=== PATIENT | female | born 1985 | race Caucasian/White ===

== ENCOUNTER 2016-10-13 14:35 | Emergency (ER) | payer MEDICAID ==
[2016-10-13] MEDS ORDERED: ACETAMINOPHEN 325 MG TABLET PO ONE (15:22)
--- NOTE | 2016-10-13 15:22 | ER Document Report ---
ED Medical Screen (RME) - General Stated Complaint: FALL/HAND PAIN Notes: fell yesterday am and hit her right hand on a dresser +pain, swelling h/o PE s/p knee surgery TRAVEL OUTSIDE OF THE [place] IN LAST 30 DAYS: No - Related Data Allergies/Adverse Reactions: dichloralphenazone [From MIDRIN] Allergy (Mild, Verified 10/13/16 15:21) Hives isometheptene mucate [From MIDRIN] Allergy (Mild, Verified 10/13/16 15:21) Hives meperidine HCl [From Demerol] Allergy (Mild, Verified 10/13/16 15:21) Hives morphine [Morphine] Allergy (Mild, Verified 10/13/16 15:21) Hives codeine [Codeine] Adverse Reaction (Verified 10/13/16 15:21) VOMITING Past Medical History - Past Medical History Cardiac Medical History: 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 Pulmonary Medical History: Reports: Hx Bronchitis, Hx Pneumonia Neurological Medical History: Reports: Hx Migraine Renal/ Medical History: Reports: Hx Kidney Stones GI Medical History: Reports: Hx Gastroesophageal Reflux Disease Musculoskeltal Medical History: Reports Hx Musculoskeletal Deformity, Reports Hx Musculoskeletal Trauma Past Surgical History: Reports: Hx Adenoidectomy, Hx Hysterectomy - Total, Hx Orthopedic Surgery - L knee, Hx Tonsillectomy, Hx Tubal Ligation - Immunizations Immunizations up to date: Yes Hx Diphtheria, Pertussis, Tetanus Vaccination: Yes
--- NOTE | 2016-10-13 16:24 | ER Document Report ---
Addendum entered and electronically signed by MELITON CRUZ FNP 16:25: Discharge - Discharge Clinical Impression: right fifth digit contusion Disposition: HOME, SELF-CARE Additional Instructions: Contusion Your injury has resulted in a contusion -- a crushing of the deep tissues. No injury to important structures was detected during the physician's exam. Contusions vary in the amount of pain they cause, and in the length of time required for healing. Typically, the area will become bruised, and will remain painful to touch for two or three weeks. However, most patients are back to working and playing within a few days. After the initial period of rest and cold-packs, your symptoms (together with the doctor's recommendations) will determine how rapidly you can get back to full activity. Usually this means "do what feels okay, but don't do things that hurt." If re-examination was recommended, it's important to follow up as instructed. Call the doctor or return any time if pain increases, if swelling becomes severe, if you develop numbness or weakness in an injured extremity, or if any other alarming symptoms occur. Follow-up with PMD in 2-3 days Prescriptions: Naproxen Sodium [Naproxen Sodium ER] 500 mg PO Q12 PRN #20 tablet.sa PRN Reason: Original Note: ED Hand/Wrist Injury - General Chief Complaint: Hand Injury Stated Complaint: FALL/HAND PAIN Mode of Arrival: Ambulatory Information source: Patient TRAVEL OUTSIDE OF THE [place] IN LAST 30 DAYS: No - HPI Injury to: Small finger Onset: Just prior to arrival - This 31-year-old female who felt herself falling put her right hand out in has a bruised area to the right fifth digit - Related Data Allergies/Adverse Reactions: dichloralphenazone [From MIDRIN] Allergy (Mild, Verified 10/13/16 15:21) Hives isometheptene mucate [From MIDRIN] Allergy (Mild, Verified 10/13/16 15:21) Hives meperidine HCl [From Demerol] Allergy (Mild, Verified 10/13/16 15:21) Hives morphine [Morphine] Allergy (Mild, Verified 10/13/16 15:21) Hives codeine [Codeine] Adverse Reaction (Verified 10/13/16 15:21) VOMITING Past Medical History - Social History Smoking Status: Unknown if Ever Smoked Chew tobacco use (# tins/day): No Frequency of alcohol use: None Drug Abuse: None Family History: Arthritis, CVA, DM, Hyperlipidemia, Hypertension, Malignancy, Thyroid Disfunction Patient has suicidal ideation: No Patient has homicidal ideation: No - Past Medical History Cardiac Medical History: 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 Pulmonary Medical History: Reports: Hx Bronchitis, Hx Pneumonia Neurological Medical History: Reports: Hx Migraine Renal/ Medical History: Reports: Hx Kidney Stones. Denies: Hx Peritoneal Dialysis GI Medical History: Reports: Hx Gastroesophageal Reflux Disease Musculoskeltal Medical History: Reports Hx Musculoskeletal Deformity, Reports Hx Musculoskeletal Trauma Past Surgical History: Reports: Hx Adenoidectomy, Hx Hysterectomy - Total, Hx Orthopedic Surgery - L knee, Hx Tonsillectomy, Hx Tubal Ligation - Immunizations Immunizations up to date: Yes Hx Diphtheria, Pertussis, Tetanus Vaccination: Yes Hx Pneumococcal Vaccination: 06/28/12 Review of Systems - Review of Systems Constitutional: No symptoms reported EENT: No symptoms reported Cardiovascular: No symptoms reported Respiratory: No symptoms reported Gastrointestinal: No symptoms reported Genitourinary: No symptoms reported Female Genitourinary: No symptoms reported Musculoskeletal: No symptoms reported Skin: No symptoms reported Hematologic/Lymphatic: No symptoms reported Neurological/Psychological: No symptoms reported Physical Exam - Vital signs Interpretation: Normal - General General appearance: Appears well, Alert - HEENT Head: Normocephalic, Atraumatic Eyes: Normal Pupils: PERRL - Respiratory Respiratory status: No respiratory distress Chest status: Nontender Breath sounds: Normal Chest palpation: Normal - Cardiovascular Rhythm: Regular Heart sounds: Normal auscultation Murmur: No - Abdominal Inspection: Normal Distension: No distension Bowel sounds: Normal Tenderness: Nontender Organomegaly: No organomegaly - Back Back: Normal, Nontender - Extremities General upper extremity: Normal inspection, Nontender, Normal color, Normal ROM , Normal temperature General lower extremity: Normal inspection, Nontender, Normal color, Normal ROM , Normal temperature, Normal weight bearing. No: Nii's sign Hand: Tender - Neurological Neuro grossly intact: Yes Cognition: Normal Orientation: AAOx4 [place] Coma Scale Eye Opening: Spontaneous [place] Coma Scale Verbal: Oriented [place]onda Coma Scale Motor: Obeys Commands [place] Coma Scale Total: 15 Speech: Normal Motor strength normal: LUE, RUE, LLE, RLE Sensory: Normal - Psychological Associated symptoms: Normal affect, Normal mood - Skin Skin Temperature: Warm Skin Moisture: Dry Skin Color: Normal Course - Diagnostic Test Radiology reviewed: Reports reviewed Discharge - Discharge Clinical Impression: right fifth digit contusion Disposition: HOME, SELF-CARE Additional Instructions: Contusion Your injury has resulted in a contusion -- a crushing of the deep tissues. No injury to important structures was detected during the physician's exam. Contusions vary in the amount of pain they cause, and in the length of time required for healing. Typically, the area will become bruised, and will remain painful to touch for two or three weeks. However, most patients are back to working and playing within a few days. After the initial period of rest and cold-packs, your symptoms (together with the doctor's recommendations) will determine how rapidly you can get back to full activity. Usually this means "do what feels okay, but don't do things that hurt." If re-examination was recommended, it's important to follow up as instructed. Call the doctor or return any time if pain increases, if swelling becomes severe, if you develop numbness or weakness in an injured extremity, or if any other alarming symptoms occur. Follow-up with PMD in 2-3 days Prescriptions: Naproxen Sodium [Naproxen Sodium ER] 500 mg PO Q12 PRN #20 tablet.sa PRN Reason:
[2016-10-13 16:53] VITALS: BP 138/77
== END 2016-10-13 16:52 | disposition home or self-care (01) ==
LOC: ER 14:35
DX: S60.051A Contusion of right little finger without damage to nail, initial encounter (principal); W19.XXXA Unspecified fall, initial encounter; Z88.5 Allergy status to narcotic agent; Z88.6 Allergy status to analgesic agent; Z86.711 Personal history of pulmonary embolism
CPT/HCPCS: 99283; 73130; J3490

== ENCOUNTER 2016-10-26 01:35 | Emergency (ER) | payer MEDICAID ==
[2016-10-26] MEDS ORDERED: OXYCODONE-ACETAMINOPHEN 5-325 MG TABLET PO ONE ×2 (02:20→03:38)
[2016-10-26] MEDS ORDERED: ONDANSETRON 4 MG TAB.RAPDIS SL ONE (02:20)
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
[2016-10-26] MEDS ORDERED: PROMETHAZINE HCL 25 MG TABLET PO ONE (03:37)
[2016-10-26] MEDS ORDERED: HYDROCODONE/ACETAMINOPHEN 5-325 MG 6 TAB/DSPK PO PRN (03:38)
[2016-10-26 04:41] VITALS: BP 110/52
== END 2016-10-26 04:40 | disposition home or self-care (01) ==
LOC: ER 01:35
DX: S09.90XA Unspecified injury of head, initial encounter (principal); S80.02XA Contusion of left knee, initial encounter; S39.012A Strain of muscle, fascia and tendon of lower back, initial encounter; V48.4XXA Person boarding or alighting a car injured in noncollision transport accident, initial encounter; Y04.2XXA Assault by strike against or bumped into by another person, initial encounter
CPT/HCPCS: 99284; 73130; 73562; 72110; 70450; S0119

== ENCOUNTER 2017-03-25 06:56 | Day surgery (SDC) | payer MEDICAID ==
[2017-03-23 09:57] LABS: HEMATOCRIT 41.7 % (36.0-47.0); HEMOGLOBIN 13.7 g/dL (12.0-15.5); HGB HCT DIFFERENCE -0.6; MEAN CORPUSCULAR HGB CONC 32.8 g/dL (32.0-36.0); MEAN CORPUSCULAR VOLUME 88 fl (80-97); RED BLOOD COUNT 4.73 10^6/uL (3.72-5.28); RED CELL DISTRIBUTION WIDTH 13.5 % (11.5-14.0); WHITE BLOOD COUNT 7.1 10^3/uL (4.0-10.5)
[2017-03-23 10:33] LABS: ANION GAP 12 (5-19); BLOOD UREA NITROGEN 16 mg/dL (7-20); CALCIUM 9.4 mg/dL (8.4-10.2); CARBON DIOXIDE 24 mmol/L (22-30); CHLORIDE 107 mmol/L (98-107); CREATININE RESULT 0.75 mg/dL (0.52-1.25); GLUCOSE 91 mg/dL (75-110); POTASSIUM 4.9 mmol/L (3.6-5.0); SODIUM 142.5 mmol/L (137-145)
[2017-03-25] MEDS ORDERED: DIPHENHYDRAMINE HCL 50 MG/ML VIAL ONE (07:07)
[2017-03-25] MEDS ORDERED: NALOXONE HCL INJ/PF 0.4 MG/1 ML SDV ONE (07:07)
[2017-03-25] MEDS ORDERED: ONDANSETRON HCL INJ/PF 4 MG/2 ML SDV ONE (07:07)
[2017-03-25] MEDS ORDERED: FLUMAZENIL INJ 0.5 MG/5 ML VIAL IV ONE (07:08)
[2017-03-25] MEDS ORDERED: FENTANYL CITRATE INJ/PF 100 MCG/2 ML AMPUL ONE (07:08)
[2017-03-25] MEDS ORDERED: EPINEPHRINE INJ 1 MG/10 ML DISP.SYRIN ONE (07:08)
[2017-03-25] MEDS ORDERED: MIDAZOLAM 2 MG/2 ML INJ ONE ×2 (07:08→09:22)
[2017-03-25] MEDS ORDERED: GLUCAGON,HUMAN RECOMB 1 MG INJ ONE (07:08)
[2017-03-25 08:35] LABS: PROTHROMBIN TIME 13.1 SEC (11.4-15.4)
[2017-03-25 08:36] LABS: PARTIAL THROMBOPLASTIN TIME 29.3 SEC (23.5-35.8)
[2017-03-25] MEDS ORDERED: PROPOFOL INJ 200 MG/20 ML VIAL IV ONE (09:22)
[2017-03-25] MEDS ORDERED: DIPHENHYDRAMINE HCL 50 MG/ML VIAL IV PRN (09:48)
[2017-03-25] MEDS ORDERED: PROMETHAZINE HCL INJ 25 MG/1 ML VIAL IV PRN ×2 (09:48)
--- NOTE | 2017-03-25 10:28 | Operative Report ---
Operative Report DATE OF SURGERY: 03/25/17 Operative Report: The risks, benefits and alternatives of the procedure including risks of bleeding, perforation requiring surgery are explained to the patient detail and informed consent is obtained. Patient was taken to the operating room. Timeout was called. Propofol medications administered. A rectal examination was done which did not reveal any masses, tears or fissures. An Olympus video scope was inserted into the patient's rectum. The scope was then gradually advanced all the way to the cecum. The cecum was identified by the usual anatomical landmarks including the ileocecal valve as well as the appendiceal office. Photodocumentation was obtained. Prep was good. The scope was then sequentially pulled back via the various segments of the colon including the ascending colon, hepatic flexure, transverse colon, splenic flexure, descending colon and finding to the rectosigmoid portions of the colon. Retroflexion maneuver is performed. The risks benefits and alternatives of the procedure explained to the patient in detail and informed consent is obtained. A GIF Olympus video scope was inserted into the patient's mouth and hypopharynx, the esophagus is identified intubated and insufflated ,the scope was then advanced through the esophagus stomach and duodenum, retroflexion maneuver is done ,the esophagus stomach and first and second portions of the duodenum examined PREOPERATIVE DIAGNOSIS: Iron deficiency anemia rule out GI bleed POSTOPERATIVE DIAGNOSIS: Moderate ileitis status post biopsy. Internal hemorrhoids. Colonoscopy performed to the cecum, no AVMs, diverticulosis, polyps are noted. Gastritis status post biopsy rule out Helicobacter pylori. Esophagus normal. First and second portions of the duodenum normal OPERATION: Colonoscopy with biopsy. EGD with biopsy SURGEON: ZACH CARDENAS ANESTHESIA: LMAC TISSUE REMOVED OR ALTERED: Gastric mucosal specimen obtained. Terminal ileum specimen obtained COMPLICATIONS: None. ESTIMATED BLOOD LOSS: None. INTRAOPERATIVE FINDINGS: As described above. PROCEDURE: Patient tolerated procedure well. No Postprocedure complications are noted. Patient discharged in good condition. Discharge date 03/25/2017. Discharge diet: Regular. Discharge activity: Regular. 2-3 week follow-up to discuss findings. Patient is instructed to call the office or proceed to the emergency room should there be any further problems or questions. We will wait on biopsies.
[2017-03-25 11:56] VITALS: BP 108/68
== END 2017-03-25 11:45 | disposition home or self-care (01) ==
LOC: END 06:56
PROVIDERS: ATTEND Internal Medicine Gastroenterology
PROC: 0DB68ZX Excision of Stomach, Via Natural or Artificial Opening Endoscopic, Diagnostic (ICD-10-PCS; principal; 2017-03-25 09:00)
PROC: 0DBB8ZX Excision of Ileum, Via Natural or Artificial Opening Endoscopic, Diagnostic (ICD-10-PCS; 2017-03-25 09:00)
DX: K29.50 Unspecified chronic gastritis without bleeding (principal); K52.9 Noninfective gastroenteritis and colitis, unspecified; B96.81 Helicobacter pylori [H. pylori] as the cause of diseases classified elsewhere; K92.1 Melena; K64.8 Other hemorrhoids; D50.9 Iron deficiency anemia, unspecified; G43.909 Migraine, unspecified, not intractable, without status migrainosus; E72.12 Methylenetetrahydrofolate reductase deficiency; M19.90 Unspecified osteoarthritis, unspecified site; Z80.0 Family history of malignant neoplasm of digestive organs; Z79.01 Long term (current) use of anticoagulants; Z79.899 Other long term (current) drug therapy; Z86.711 Personal history of pulmonary embolism; Z88.8 Allergy status to other drugs, medicaments and biological substances; Z88.5 Allergy status to narcotic agent
CPT/HCPCS: 43239; 45380; 36415 ×2; 85027; 85610; 85730; 80048; 88342 ×2; 88305 ×2; J2250; J2704; 45378; 740; J0171; J1200; J1610; J2310; J2405; J3010; J3490

== ENCOUNTER → 2017-03-27 | Outpatient (CLI) | payer MEDICAID ==
--- NOTE | 2017-03-27 15:32 | WOMENS IMAGING REPORT ---
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 TECHNIQUE: Dual-Energy X-ray Absorptiometry (DEXA) of the AP Spine and Hip. LIMITATIONS: None. FINDINGS: LUMBAR SPINE: The bone mineral density (BMD) measured from L1-L4 in the AP projection correlates with a T-score of -1.4, which is osteopenia as defined by the World Health Organization. HIP: The bone mineral density (BMD) measured in the left hip correlates with a T-score of 1.1, which is no rmal as defined by the World Health Organization. IMPRESSION: 1. LUMBAR SPINE: Osteopenia 2. HIP: Normal COMMENT: The World Health Organization defines low BMD as follows: T-score: Normal: Greater than -1.0 Osteopenia: Between -1.0 and -2.5 Osteoporosis: Less than -2.5 without fractures Established osteoporosis: Less than -2.5 with fractures In general, you may wish to consider: Diagnosis Treatment Follow-up DEXA Normal BMD Prevention 2-3 years Osteopenia Prevention/Therapy 1-2 years Osteoporosis Therapy Yearly TECHNICAL DOCUMENTATION: JOB ID: [id number]- All Rights Reserved
== END ==
LOC: WI 13:50
PROVIDERS: ATTEND Specialist
DX: M81.0 Age-related osteoporosis without current pathological fracture (principal)
CPT/HCPCS: 77080

== ENCOUNTER 2017-04-30 14:07 | Emergency (ER) | payer OTHER, MEDICAID ==
[2017-04-30 14:22] VITALS: BP 122/63
[2017-04-30] MEDS ORDERED: CYCLOBENZAPRINE HCL 10 MG TABLET PO ONE (14:55)
[2017-04-30] MEDS ORDERED: HYDROCODONE/ACETAMINOPHEN 5-325 MG 6 TAB/DSPK PO PRN (14:55)
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
== END 2017-04-30 15:13 | disposition home or self-care (01) ==
LOC: ER 14:07
DX: S20.212A Contusion of left front wall of thorax, initial encounter (principal); M25.512 Pain in left shoulder; M25.561 Pain in right knee; M54.5 Low back pain; R07.81 Pleurodynia; V89.2XXA Person injured in unspecified motor-vehicle accident, traffic, initial encounter
CPT/HCPCS: 99283

== ENCOUNTER → 2017-05-11 | Day surgery (SDC) | payer MEDICAID ==
--- NOTE | 2017-05-11 14:43 | RADIOLOGY REPORT (SQ) ---
EXAM DESCRIPTION: ARTHRO WRIST INJECTION; FLUORO/NEEDLE PLACEMENT COMPLETED DATE/TIME: 05/11/2017 2:02 pm REASON FOR STUDY: UNSPEC FX OF SECOND METACARPAL BONE, RT HAND (S62.300A) S62.300A UNSP FRACTURE OF SECOND METACARPAL BONE, RIGHT HAND COMPARISON: None. FLUOROSCOPY TIME: 23 seconds 1 images saved to PACS. LIMITATIONS: None. PROCEDURE: Procedure, risks, benefits and alternatives explained to patient who then gave written co nsent. The right wrist was marked and a time-out was called for correct marking verification. Radioc arpal site marked using fluoroscopic guidance. Wrist prepped and draped using sterile technique. Lo charito anesthesia achieved using 1% lidocaine injection. Hypodermic needle introduced into the joint sp melissa under direct fluoroscopic visualization. Non-ionic contrast instilled to confirm intra-articular position. Dilute gadolinium solution then injected. Needle removed and entry site covered with steri le bandage. No immediate complications noted. TECHNIQUE: Digital images acquired during fluoroscopy and stored on PACS. Patient immediately take n to the MR suite for additional imaging. INJECTION LOCATION: Right wrist. CONTRAST TYPE AND AMOUNT: 0.5 cc Isovue. 1.5 cc dilute gadolinium. IMPRESSION: SUCCESSFUL NEEDLE PLACEMENT AND INJECTION FOR RIGHT WRIST MR ARTHROGRAM. COMMENT: Quality ID #[id number]: Final reports for procedures using fluoroscopy that document radiation exp osure indices, or exposure time and number of fluorographic images (if radiation exposure indices are not available) TECHNICAL DOCUMENTATION: JOB ID: [id number] [employer]- All Rights Reserved
--- NOTE | 2017-05-11 15:05 | RADIOLOGY REPORT (SQ) ---
EXAM DESCRIPTION: MRI RT UPPER JOINT WITH COMPLETED DATE/TIME: 05/11/2017 2:34 pm REASON FOR STUDY: UNSPEC FX OF SECOND METACARPAL BONE, RT HAND (S62.300A) S62.300A UNSP FRACTURE OF SECOND METACARPAL BONE, RIGHT HAND COMPARISON: None. TECHNIQUE: Right wrist post-arthrogram imaging includes T1 and T1 and T2 fat sat sequences. LIMITATIONS: Motion artifact. FINDINGS: JOINT DISTENSION: Adequate. No loose body. BONE MARROW: No alteration of signal to suggest marrow replacement or edema. No occult fracture. No l arge osteophytes. CARPAL ALIGNMENT AND ARTICULATION: Normal congruity of sigmoid notch at level of distal ruj without p ositive or negative ulnar variance. Normal capitolunate angle. No widening of scapholunate articulati on. SCAPHOLUNATE LIGAMENT: Without tear. No contrast in middle carpal compartment. LUNATO-TRIQUETRAL LIGAMENT: Without tear. No contrast in middle carpal compartment. TFC COMPLEX: radial and ulnar attachments normal. Meniscus intact. Extensor carpi ulnaris tendon norm al without tendinopathy. No contrast in distal RUJ. EXTRINSIC LIGAMENTS AND DISTAL RADIO-ULNAR JOINT: Dorsal and volar distal RUJ ligaments intact withou t subluxation of the distal ulna with respect to the radius. 1-6 EXTENSOR COMPARTMENTS: Normal. Specifically no tendinopathy of the abductor pollicis longus or ex tensor pollicis brevis to suggest de Quervains syndrome. CARPAL TUNNEL AND MEDIAN NERVE: Normal volume and morphology of carpal tunnel proximal at the level o f the radiocarpal joint and distally at the hook of the hamate. No thickening or signal alteration of median nerve. OTHER: No other significant finding. IMPRESSION: NORMAL MRI ARTHROGRAM OF THE WRIST. TECHNICAL DOCUMENTATION: JOB ID: [id number] [employer]- All Rights Reserved
== END ==
LOC: RAD 12:50
PROVIDERS: ATTEND Family Medicine
DX: S62.300A Unspecified fracture of second metacarpal bone, right hand, initial encounter for closed fracture (principal); X58.XXXA Exposure to other specified factors, initial encounter
CPT/HCPCS: 73222; 25246; 77002; A9576

== ENCOUNTER 2017-06-12 20:30 | Emergency (ER) | payer MEDICAID ==
[2017-06-12] MEDS ORDERED: OXYCODONE-ACETAMINOPHEN 5-325 MG TABLET PO ONE (21:00)
--- NOTE | 2017-06-12 21:02 | ER Document Report ---
ED Medical Screen (RME) - General Chief Complaint: Fall Injury Stated Complaint: FALL Time Seen by Provider: 06/12/17 21:00 Mode of Arrival: Wheelchair Information source: Patient TRAVEL OUTSIDE OF THE [place] IN LAST 30 DAYS: No - HPI Patient complains to provider of: Slip and fall Onset: Just prior to arrival Onset/Duration: Sudden Notes: 06/12/17 21:01 Patient is a 32-year-old female presenting to the emergency room status post slip and fall causing injury to her left knee, her right low back and her right hand, has left hand in a cast from a previous injury - Related Data Allergies/Adverse Reactions: dichloralphenazone [From MIDRIN] Allergy (Mild, Verified 06/12/17 20:40) Hives isometheptene mucate [From MIDRIN] Allergy (Mild, Verified 06/12/17 20:40) Hives meperidine HCl [From Demerol] Allergy (Mild, Verified 06/12/17 20:40) Hives morphine [Morphine] Allergy (Mild, Verified 06/12/17 20:40) Hives codeine [Codeine] Adverse Reaction (Severe, Verified 06/12/17 20:40) VOMITING Past Medical History - Past Medical History Cardiac Medical History: 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 Denies: Hx Cerebrovascular Accident, Hx Seizures Renal/ Medical History: Reports: Hx Kidney Stones. Denies: Hx Peritoneal Dialysis GI Medical History: Reports: Hx Gastroesophageal Reflux Disease Musculoskeltal Medical History: Denies Hx Arthritis, Reports Hx Musculoskeletal Deformity, Reports Hx Musculoskeletal Trauma Past Surgical History: Reports: Hx Adenoidectomy, Hx Cholecystectomy, Hx Hysterectomy, Hx Orthopedic Surgery - L knee, Hx Tonsillectomy, Hx Tubal Ligation - Immunizations Immunizations up to date: Yes Hx Diphtheria, Pertussis, Tetanus Vaccination: Yes Physical Exam - Vital signs Vitals: Temp Pulse Resp BP Pulse Ox 98.2 F 94 20 119/63 97 06/12/17 20:40 06/12/17 20:40 06/12/17 20:40 06/12/17 20:40 06/12/17 20:40 Course - Vital Signs Vital signs: Temp Pulse Resp BP Pulse Ox 98.2 F 94 20 119/63 97 06/12/17 20:40 06/12/17 20:40 06/12/17 20:40 06/12/17 20:40 06/12/17 20:40
--- NOTE | 2017-06-12 22:39 | RADIOLOGY REPORT (SQ) ---
EXAM DESCRIPTION: L SPINE WHOLE COMPLETED DATE/TIME: 06/12/2017 10:31 pm REASON FOR STUDY: fall COMPARISON: None. NUMBER OF VIEWS: Five views including obliques. TECHNIQUE: AP, lateral, oblique, and sacral radiographic images acquired of the lumbar spine. LIMITATIONS: None. FINDINGS: MINERALIZATION: Normal. SEGMENTATION: Normal. No transitional anatomy. ALIGNMENT: Normal. VERTEBRAE: Maintained height. No fracture or worrisome bone lesion. DISCS: Preserved height. No significant osteophytes or end plate irregularity. POSTERIOR ELEMENTS: Pedicles and facets are intact. No pars defect or posterior arch defects. HARDWARE: None in the spine. PARASPINAL SOFT TISSUES: Normal. PELVIS: Intact as visualized. No fractures or worrisome bone lesions. SI joints intact. OTHER: No other significant finding. IMPRESSION: NORMAL 5 VIEW LUMBAR SPINE. TECHNICAL DOCUMENTATION: JOB ID: [id number] [employer]- All Rights Reserved
--- NOTE | 2017-06-12 22:39 | RADIOLOGY REPORT (SQ) ---
EXAM DESCRIPTION: KNEE LEFT 4 VIEW COMPLETED DATE/TIME: 06/12/2017 10:31 pm REASON FOR STUDY: fall COMPARISON: 10/26/2016. NUMBER OF VIEWS: Four views. TECHNIQUE: AP, lateral, and both oblique radiographic images acquired of the left knee. LIMITATIONS: None. FINDINGS: MINERALIZATION: Normal. BONES: No acute fracture or dislocation. No worrisome bone lesions. JOINT: No effusion. SOFT TISSUES: No soft tissue swelling. No radio-opaque foreign body. OTHER: No other significant finding. IMPRESSION: NEGATIVE STUDY OF THE LEFT KNEE. NO RADIOGRAPHIC EVIDENCE OF ACUTE INJURY. TECHNICAL DOCUMENTATION: JOB ID: [id number] [employer]- All Rights Reserved
--- NOTE | 2017-06-12 22:40 | RADIOLOGY REPORT (SQ) ---
EXAM DESCRIPTION: HAND RIGHT 3 VIEWS COMPLETED DATE/TIME: 06/12/2017 10:31 pm REASON FOR STUDY: fall COMPARISON: 10/13/2016. EXAM PARAMETERS: NUMBER OF VIEWS: Three views. TECHNIQUE: AP, lateral and oblique radiographic images acquired of the right hand. LIMITATIONS: None. FINDINGS: MINERALIZATION: Normal. BONES: No acute fracture or dislocation. No worrisome bone lesions. JOINTS: No effusions. SOFT TISSUES: No soft tissue swelling. No foreign body. OTHER: No other significant finding. IMPRESSION: NEGATIVE STUDY OF THE RIGHT HAND. NO RADIOGRAPHIC EVIDENCE OF ACUTE INJURY. TECHNICAL DOCUMENTATION: JOB ID: [id number] [employer]- All Rights Reserved
--- NOTE | 2017-06-12 23:11 | ER Document Report ---
ED General - General Chief Complaint: Fall Injury Stated Complaint: FALL Time Seen by Provider: 06/12/17 21:00 Mode of Arrival: Wheelchair Notes: Patient is a 32-year-old female who presents after mechanical slip and fall at her son's football game. States she slid in a area of mud landing on her right hand and striking her left knee. She does also complain of pain to her low back. This did occur several hours prior to arrival. Since that time she has had a constant, dull, aching pain to the affected areas. Moving worsens the pain. She has not tried anything for improvement of the pain. She did not hit her head or neck. She denies any weakness, numbness, bowel or bladder incontinence. She has been able to ambulate but with pain since the episode. No history of similar injuries to the affected area in the past with exception of the left knee which she states has been injured in the past. TRAVEL OUTSIDE OF THE [place] IN LAST 30 DAYS: No - Related Data Allergies/Adverse Reactions: dichloralphenazone [From MIDRIN] Allergy (Mild, Verified 06/12/17 20:40) Hives isometheptene mucate [From MIDRIN] Allergy (Mild, Verified 06/12/17 20:40) Hives meperidine HCl [From Demerol] Allergy (Mild, Verified 06/12/17 20:40) Hives morphine [Morphine] Allergy (Mild, Verified 06/12/17 20:40) Hives codeine [Codeine] Adverse Reaction (Severe, Verified 06/12/17 20:40) VOMITING Past Medical History - General Information source: Patient - Social History Smoking Status: Never Smoker Chew tobacco use (# tins/day): No Frequency of alcohol use: None Drug Abuse: None Lives with: Family Family History: Arthritis, CAD, COPD, CVA, DM, Hyperlipidemia, Hypertension, Malignancy, Thyroid Disfunction - Past Medical History Cardiac Medical History: 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 Denies: Hx Cerebrovascular Accident, Hx Seizures Renal/ Medical History: Reports: Hx Kidney Stones. Denies: Hx Peritoneal Dialysis GI Medical History: Reports: Hx Gastroesophageal Reflux Disease Musculoskeltal Medical History: Denies Hx Arthritis, Reports Hx Musculoskeletal Deformity, Reports Hx Musculoskeletal Trauma Past Surgical History: Reports: Hx Adenoidectomy, Hx Cholecystectomy, Hx Hysterectomy, Hx Orthopedic Surgery - L knee, Hx Tonsillectomy, Hx Tubal Ligation - Immunizations Immunizations up to date: Yes Hx Diphtheria, Pertussis, Tetanus Vaccination: Yes Hx Pneumococcal Vaccination: 06/28/12 Review of Systems - Review of Systems Notes: Constitutional: Negative for fever. Eyes: Negative for visual changes. ENT: Negative for facial injury Cardiovascular: Negative for chest injury. Respiratory: Negative for shortness of breath. Gastrointestinal: Negative for abdominal injury. Genitourinary: Negative for genital injury Musculoskeletal: Positive for back injury. Skin: Positive for laceration/abrasions. Neurological: Negative for head injury. Physical Exam - Vital signs Vitals: Temp Pulse Resp BP Pulse Ox 98.2 F 94 20 119/63 97 06/12/17 20:40 06/12/17 20:40 06/12/17 20:40 06/12/17 20:40 06/12/17 20:40 Interpretation: Normal Notes: PHYSICAL EXAMINATION: GENERAL: Well-appearing, no acute distress. HEAD: Atraumatic, normocephalic. EYES: Pupils equal round and reactive to light, extraocular movements intact, sclera anicteric, conjunctiva are normal. ENT: nares patent, no oral pharyngeal trauma. No hemotympanum, no Ott's sign , no raccoon eyes. NECK: No midline cervical spine tenderness. Patient able to move their head to 45 bilaterally without any discomfort. LUNGS: Breath sounds clear to auscultation bilaterally and equal. No wheezes rales or rhonchi. HEART: Regular rate and rhythm without murmurs. CHEST WALL: No ecchymosis over the chest wall. ABDOMEN: Soft, nontender, normoactive bowel sounds. No guarding, no rebound. No abdominal bruising EXTREMITIES: Mild swelling to the left knee. SHAISTA of the left lower extremity is 1.1. Patient is able to flex the knee to 90 with pain. Full extension. No anterior laxity. Mild bruising to the thenar eminence of the right hand. BACK: No midline spinal tenderness, step-offs, or deformities. Mild pain on palpation of the right low back, lateral to the midline. NEUROLOGICAL: Face symmetric. Tongue protrudes midline. Extraocular motions intact. Pupils are 2 mm and equally reactive. Moves all extremity spontaneously and on command PSYCH: Normal mood, normal affect. SKIN: Warm, Dry, normal turgor, no rashes or lesions noted. Course - Re-evaluation Re-evalutation: 06/12/17 23:09 Patient presents after a mechanical fall just prior to arrival. She did not hit her head or neck. Her main complaint at time of arrival is left knee pain. SHAISTA is greater than 0.9. She is able to flex her knee to 90 with pain. No anterior laxity. There is a soft tissue abrasion over the patella. X-ray does not show any evidence of acute fracture. She did also complain of right low back pain but has no midline spinal tenderness, step-offs or deformities. A 5 view lumbar film was obtained in triage and is noted to be normal. She does also complain of right hand pain and does have notable bruising over her thenar eminence. X-ray of the hand is normal. She does not have any additional areas of injury. She is in place in a knee immobilizer. Tetanus is already up-to- date. At this time will discharge with return precautions and follow-up recommendations. Verbal discharge instructions given a the bedside and opportunity for questions given. Medication warnings reviewed. Patient is in agreement with this plan and has verbalized understanding of return precautions and the need for primary care follow-up in the next 24-72 hours. - Vital Signs Vital signs: Temp Pulse Resp BP Pulse Ox 98.2 F 76 20 126/61 H 98 06/12/17 20:40 06/12/17 23:49 06/12/17 20:40 06/12/17 23:34 06/12/17 23:49 - Diagnostic Test Radiology reviewed: Image reviewed, Reports reviewed Radiology results interpreted by me: 06/13/17 03:44 Right hand x-ray: No acute fracture or dislocation Left knee x-ray: No acute fracture or dislocation Discharge - Discharge Clinical Impression: Fall Qualifiers: Encounter type: initial encounter Qualified Code(s): W19.XXXA - Unspecified fall, initial encounter Left knee injury Qualifiers: Encounter type: initial encounter Qualified Code(s): S89.92XA - Unspecified injury of left lower leg, initial encounter Injury of right hand Qualifiers: Encounter type: initial encounter Qualified Code(s): S69.91XA - Unspecified injury of right wrist, hand and finger(s), initial encounter Condition: Good Disposition: HOME, SELF-CARE Additional Instructions: Your x-ray does not show any acute fracture today. You likely have a ligamentous strain. Take Tylenol 1000 mg every 6 hours as needed for pain. Continue to apply ice to the area is much your able. Please follow-up with your primary care physician or orthopedic surgery if you do not have improving your symptoms in the next 1-2 weeks. Please return immediately if you develop weakness, numbness, spreading redness from the area, or any other symptoms that are concerning to you. Referrals: RONI PARR MD [ACTIVE STAFF] - Follow up as needed
[2017-06-12 23:35] VITALS: BP 126/61
[2017-06-13] MEDS ORDERED: HYDROCODONE/ACETAMINOPHEN 5-325 MG 6 TAB/DSPK PO PRN (00:02)
== END 2017-06-13 00:14 | disposition home or self-care (01) ==
LOC: ER 20:30
DX: S89.92XA Unspecified injury of left lower leg, initial encounter (principal); S69.91XA Unspecified injury of right wrist, hand and finger(s), initial encounter; M79.641 Pain in right hand; M25.562 Pain in left knee; W19.XXXA Unspecified fall, initial encounter
CPT/HCPCS: 99283; 73130; 73562; 72110; L1830

== ENCOUNTER 2017-07-08 08:08 | Day surgery (SDC) | payer MEDICAID ==
[~2017-07-08 08:08] MED LIST: CEFAZOLIN 2 GM/D5W RTU 2 GM/50 ML RTUPB IV PRN
[2017-07-08 08:36] LABS: HEMATOCRIT 41.1 % (36.0-47.0); HEMOGLOBIN 13.9 g/dL (12.0-15.5); HGB HCT DIFFERENCE 0.6; MEAN CORPUSCULAR HEMOGLOBIN 28.9 pg (27.0-33.4); MEAN CORPUSCULAR HGB CONC 33.7 g/dL (32.0-36.0); MEAN CORPUSCULAR VOLUME 86 fl (80-97); RED BLOOD COUNT 4.81 10^6/uL (3.72-5.28); RED CELL DISTRIBUTION WIDTH 13.8 % (11.5-14.0); WHITE BLOOD COUNT 7.8 10^3/uL (4.0-10.5)
[2017-07-08 08:42] LABS: PARTIAL THROMBOPLASTIN TIME 26.4 SEC (23.5-35.8); PROTHROMBIN TIME 12.5 SEC (11.4-15.4)
[2017-07-08 08:51] LABS: ANION GAP 12 (5-19); BLOOD UREA NITROGEN 8 mg/dL (7-20); CALCIUM 9.8 mg/dL (8.4-10.2); CARBON DIOXIDE 27 mmol/L (22-30); CHLORIDE 104 mmol/L (98-107); GLUCOSE 96 mg/dL (75-110); POTASSIUM 4.2 mmol/L (3.6-5.0); SODIUM 142.9 mmol/L (137-145)
--- NOTE | 2017-07-08 09:40 | RADIOLOGY REPORT (SQ) ---
EXAM DESCRIPTION: CHEST SINGLE VIEW COMPLETED DATE/TIME: 07/08/2017 8:50 am REASON FOR STUDY: PREOP COMPARISON: CT chest 07/15/2016, 01/01/2016 Chest films 04/21/2015, 12/13/2014 EXAM PARAMETERS: NUMBER OF VIEWS: One view. TECHNIQUE: Single frontal radiographic view of the chest acquired. RADIATION DOSE: NA LIMITATIONS: None. FINDINGS: LUNGS AND PLEURA: No opacities, masses or pneumothorax. No pleural effusion. MEDIASTINUM AND HILAR STRUCTURES: No masses. Contour normal. HEART AND VASCULAR STRUCTURES: Heart normal in size. Normal vasculature. BONES: No acute findings. HARDWARE: None in the chest. OTHER: No other significant finding. IMPRESSION: NO ACUTE RADIOGRAPHIC FINDING IN THE CHEST. TECHNICAL DOCUMENTATION: JOB ID: [id number]
[2017-07-08] MEDS ORDERED: LIDOCAINE 1%/EPINEPHRINE INJ 20 ML VIAL ONE (09:45)
[2017-07-08] MEDS ORDERED: BUPIVACAINE HCL 0.5 % INJ/PF 30 ML SDV ONE (09:45)
[2017-07-08] MEDS ORDERED: PROPOFOL INJ 200 MG/20 ML VIAL IV ONE (10:15)
[2017-07-08] MEDS ORDERED: FENTANYL CITRATE INJ/PF 100 MCG/2 ML AMPUL ONE (10:15)
[2017-07-08] MEDS ORDERED: MIDAZOLAM 2 MG/2 ML INJ ONE (10:15)
[2017-07-08] MEDS ORDERED: ONDANSETRON HCL INJ/PF 4 MG/2 ML SDV ONE (10:15)
[2017-07-08] MEDS ORDERED: DEXAMETHASONE SOD PHOSPHATE INJ 4 MG/1 ML VIAL ONE (10:15)
[2017-07-08] MEDS ORDERED: IBUPROFEN INJ 800 MG/8 ML VIAL IV ONE (10:16)
[2017-07-08] MEDS ORDERED: FENTANYL CITRATE INJ/PF 100 MCG/2 ML AMPUL IV PRN ×3 (10:49)
[2017-07-08] MEDS ORDERED: PROMETHAZINE HCL INJ 25 MG/1 ML VIAL IV PRN ×2 (10:49)
[2017-07-08] MEDS ORDERED: DIPHENHYDRAMINE HCL 50 MG/ML VIAL IV PRN (10:49)
--- NOTE | 2017-07-08 11:08 | Operative Report ---
Operative Report DATE OF SURGERY: 07/08/17 PREOPERATIVE DIAGNOSIS: Left medial meniscal tear POSTOPERATIVE DIAGNOSIS: Intact left medial meniscus. 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 Intact ACL. Grade 2-3 chondral malacia lateral compartment. Lateral meniscal tear. Grade 3-4 chondral malacia the patellofemoral compartment OPERATION: Arthroscopic left knee with abrasion chondroplasty of medial compartment for partial lateral meniscectomy, and microfracture of the patellofemoral compartment SURGEON: RONI PARR ANESTHESIA: GA PROCEDURE: The patient supine in the operating table the left lower extremities prepped and draped in sterile fashion. The knee is insufflated with a combination of Marcaine, Xylocaine, and epinephrine. Subsequently at the site of previous arthroscopic portals medial and lateral infrapatellar portals are created and it used for the introduction of arthroscope and debridements mutation. The joint is examined in systematic fashion. Of note there is a diffuse chondromalacia the medial compartment, a Moorhead type lesion in the patellofemoral groove with exposed subchondral bone, and a degenerative tear of the lateral meniscus. The lateral meniscus is addressed with a partial lateral meniscectomy from approximately 5:00 to 12:00 on the face of the dial. The chondral malacia the medial compartment was addressed using mechanical shaver and abrading the fibrillated cartilage. Lastly the patellofemoral lesion which is probably the most significant is debrided lightly with mechanical shaver and then microfracture was performed with the appropriate calls. At this point instrumentation was removed. The portals were reapproximated with interrupted nylon. A sterile compressive dressing is applied and the patient's return to the PACU in satisfactory condition.
[2017-07-08] MEDS: FENTANYL CITRATE INJ/PF 100 MCG/2 ML AMPUL ONE ×2 (11:13→11:18)
[2017-07-08] MEDS ORDERED: OXYCODONE HCL IR 5 MG TABLET PO PRN (11:24)
[2017-07-08] MEDS ORDERED: ONDANSETRON 4 MG TAB.RAPDIS SL PRN (11:24)
[2017-07-08] MEDS ORDERED: PROMETHAZINE HCL INJ 25 MG/1 ML VIAL ONE (11:30)
--- NOTE | 2017-07-08 12:16 | EKG REPORT ---
SEVERITY:- BORDERLINE ECG - SINUS RHYTHM BORDERLINE T ABNORMALITIES, INFERIOR LEADS : Confirmed by: Donald Garcia MD 08-Jul-2017 12:15:52
[2017-07-08 13:11] VITALS: BP 107/63
== END 2017-07-08 13:50 | disposition home or self-care (01) ==
LOC: OROUT 08:08
PROVIDERS: ATTEND Orthopaedic Surgery
PROC: 0SBD4ZZ Excision of Left Knee Joint, Percutaneous Endoscopic Approach (ICD-10-PCS; 2017-07-08)
PROC: 0SQD4ZZ Repair Left Knee Joint, Percutaneous Endoscopic Approach (ICD-10-PCS; 2017-07-08)
PROC: 0SBD4ZZ Excision of Left Knee Joint, Percutaneous Endoscopic Approach (ICD-10-PCS; principal; 2017-07-08 10:15)
DX: M23.301 Other meniscus derangements, unspecified lateral meniscus, left knee (principal); M22.42 Chondromalacia patellae, left knee; M06.9 Rheumatoid arthritis, unspecified; D64.9 Anemia, unspecified; Z88.5 Allergy status to narcotic agent; Z86.718 Personal history of other venous thrombosis and embolism; Z79.01 Long term (current) use of anticoagulants
CPT/HCPCS: 36415; 85027; 85610; 85730; 80048; 71010; 93005; 93010; 29881; 29879; J2250; J1100; J3010; J3490 ×2; J2550; J2405; J2704; J0690; J1741; 1400

== ENCOUNTER 2017-12-31 19:37 | Emergency (ER) | payer MEDICAID, OTHER ==
--- NOTE | 2017-12-31 20:31 | ER Document Report ---
ED Medical Screen (RME) - General Chief Complaint: Headache >24 hrs old Stated Complaint: DIZZINESS Time Seen by Provider: 12/31/17 20:19 Notes: Patient is a 32-year-old female presents emergency department complaining of headache and dizziness. She states that the headache is been present for the past 5 days as a constant left-sided headache behind her left eye along her left shinto that does not improve with her normal migraine medication. She is not taking any Tylenol or Motrin. She also admits to dizziness for the past 2 days that has gotten progressively worse. She was seen at urgent care 2 days ago given Antivert without any improvement. She states it is worse with movement to the left whenever she flipped her head upside down. She denies any vision changes other than feeling like she is constantly on a boat denies any occipital headache. TRAVEL OUTSIDE OF THE [place] IN LAST 30 DAYS: No - Related Data Allergies/Adverse Reactions: dichloralphenazone [From MIDRIN] Allergy (Mild, Verified 07/02/17 15:08) Hives isometheptene mucate [From MIDRIN] Allergy (Mild, Verified 07/02/17 15:08) Hives meperidine HCl [From Demerol] Allergy (Mild, Verified 07/02/17 15:08) Hives morphine [Morphine] Allergy (Mild, Verified 07/02/17 15:08) Hives codeine [Codeine] Adverse Reaction (Severe, Verified 07/02/17 15:08) VOMITING Past Medical History - Past Medical History Cardiac Medical History: 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 Denies: Hx Cerebrovascular Accident, Hx Seizures Renal/ Medical History: Reports: Hx Kidney Stones. Denies: Hx Peritoneal Dialysis GI Medical History: Reports: Hx Gastroesophageal Reflux Disease Musculoskeltal Medical History: Reports Hx Arthritis - hands, left knee , Reports Hx Musculoskeletal Deformity, Reports Hx Musculoskeletal Trauma Past Surgical History: Reports: Hx Adenoidectomy, Hx Cholecystectomy, Hx Hysterectomy, Hx Orthopedic Surgery - L knee, Hx Tonsillectomy, Hx Tubal Ligation - Immunizations Immunizations up to date: Yes Hx Diphtheria, Pertussis, Tetanus Vaccination: Yes History of Influenza Vaccine for 06/2017 - 11/2017 Season: No Physical Exam - Vital signs Vitals: Temp Pulse Resp BP Pulse Ox 98.3 F 76 16 130/75 H 98 12/31/17 19:44 12/31/17 19:44 12/31/17 19:44 12/31/17 19:44 12/31/17 19:44 - Notes Notes: PHYSICAL EXAM GENERAL: Alert, interacts well. HEAD: Normocephalic, atraumatic. EYES: Pupils equal, round, and reactive to light. Extraocular movements intact. ENT: Oral mucosa moist, tongue midline. NECK: Full range of motion. Supple. Trachea midline. EXTREMITIES: Moves all 4 extremities spontaneously. No edema, radial and dorsalis pedis pulses 2/4 bilaterally. No cyanosis. NEUROLOGICAL: Symptoms easily reproducible with patient is sitting up from the gurney. alert and oriented x4. face symmetric. Tongue protrudes midline. Extraocular motions intact. Pupils are 2 mm and equally reactive. Normal speech, normal gait. 5 out of 5 strength in both the distal and proximal upper and lower extremities bilaterally. Sensation is grossly intact throughout. Finger to nose testing normal. Pronator drift normal. PSYCH: Normal affect, normal mood. SKIN: Warm, dry, normal turgor. No rashes or lesions noted. Course - Vital Signs Vital signs: Temp Pulse Resp BP Pulse Ox 98.3 F 76 16 130/75 H 98 12/31/17 19:44 12/31/17 19:44 12/31/17 19:44 12/31/17 19:44 12/31/17 19:44
[2017-12-31] MEDS ORDERED: DIPHENHYDRAMINE HCL 50 MG/ML VIAL IV ONE (21:13)
[2017-12-31] MEDS ORDERED: NORMAL SALINE 500 ML IV ONE (21:13)
[2017-12-31] MEDS ORDERED: METOCLOPRAMIDE HCL INJ/PF 10 MG/2 ML SDV IV ONE (21:13)
--- NOTE | 2017-12-31 21:16 | ER Document Report ---
ED General - General Chief Complaint: Headache >24 hrs old Stated Complaint: DIZZINESS Time Seen by Provider: 12/31/17 20:19 Mode of Arrival: Ambulatory Information source: Patient Notes: This is a 32-year-old female with a history of migraines who presents to the emergency room with a headache associated with vertigo for the past 3 days. Patient normally is on Maxalt but it is not helped. Patient states she gets migraines fairly frequently but is having more dizziness and vertigo type symptoms. She does have a remote history of a DVT in 2013 TRAVEL OUTSIDE OF THE [place] IN LAST 30 DAYS: No - HPI Onset: Last week Onset/Duration: Gradual Quality of pain: Dull Severity: Moderate Pain Level: 3 Associated symptoms: denies: Chest pain, Fever, Shortness of breath Exacerbated by: Denies Relieved by: Denies Similar symptoms previously: Yes Recently seen / treated by doctor: Yes - Related Data Allergies/Adverse Reactions: dichloralphenazone [From MIDRIN] Allergy (Mild, Verified 07/02/17 15:08) Hives isometheptene mucate [From MIDRIN] Allergy (Mild, Verified 07/02/17 15:08) Hives meperidine HCl [From Demerol] Allergy (Mild, Verified 07/02/17 15:08) Hives morphine [Morphine] Allergy (Mild, Verified 07/02/17 15:08) Hives codeine [Codeine] Adverse Reaction (Severe, Verified 07/02/17 15:08) VOMITING Past Medical History - General Information source: Patient - Social History Smoking Status: Never Smoker Cigarette use (# per day): No Chew tobacco use (# tins/day): No Frequency of alcohol use: None Drug Abuse: None Lives with: Family Family History: Arthritis, CAD, COPD, CVA, DM, Hyperlipidemia, Hypertension, Malignancy, Thyroid Disfunction Patient has suicidal ideation: No Patient has homicidal ideation: No - Past Medical History Cardiac Medical History: 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 Denies: Hx Cerebrovascular Accident, Hx Seizures Renal/ Medical History: Reports: Hx Kidney Stones. Denies: Hx Peritoneal Dialysis GI Medical History: Reports: Hx Gastroesophageal Reflux Disease Musculoskeltal Medical History: Reports Hx Arthritis - hands, left knee , Reports Hx Musculoskeletal Deformity, Reports Hx Musculoskeletal Trauma Past Surgical History: Reports: Hx Adenoidectomy, Hx Cholecystectomy, Hx Hysterectomy, Hx Orthopedic Surgery - L knee, Hx Tonsillectomy, Hx Tubal Ligation - Immunizations Immunizations up to date: Yes Hx Diphtheria, Pertussis, Tetanus Vaccination: Yes Hx Pneumococcal Vaccination: 06/28/12 Review of Systems - Review of Systems Constitutional: denies: Chills, Fever EENT: No symptoms reported Cardiovascular: No symptoms reported Gastrointestinal: See HPI, Nausea Genitourinary: See HPI Female Genitourinary: No symptoms reported Musculoskeletal: No symptoms reported Skin: No symptoms reported Hematologic/Lymphatic: No symptoms reported Neurological/Psychological: See HPI Physical Exam - Vital signs Vitals: Temp Pulse Resp BP Pulse Ox 98.3 F 76 16 130/75 H 98 12/31/17 19:44 12/31/17 19:44 12/31/17 19:44 12/31/17 19:44 12/31/17 19:44 Course - Vital Signs Vital signs: Temp Pulse Resp BP Pulse Ox 98.3 F 76 16 130/75 H 98 12/31/17 19:44 12/31/17 19:44 12/31/17 19:44 12/31/17 19:44 12/31/17 19:44 - Laboratory Result Diagrams: 12/31/17 22:39 12/31/17 22:39 Laboratory results interpreted by me: 12/31/17 12/31/17 22:39 22:39 RDW 14.4 H AST 87 H ALT 109 H - Diagnostic Test Radiology reviewed: Image reviewed, Reports reviewed - RI shows no evidence of aneurysm. MRI of the brain shows no evidence of stroke Discharge - Discharge Clinical Impression: Migraine headache Condition: Stable Disposition: HOME, SELF-CARE Instructions: Migraine Headache ([facility]) Additional Instructions: As we discussed, the MRI of the brain is a very sensitive test and showed no evidence of strokes. Additionally, the MRA of the brain is good for aneurysms and it did not show an aneurysm's. Thank you for choosing [facility] for your care. The examination and treatment you have received in the Emergency Department today has been rendered on an emergency basis only and is not intended to be a substitute for complete medical care. You should contact your doctor as it is important that she/he examine you for any new or remaining problems. If given a copy of any lab tests or radiology reports, please bring them with you when you see your physician. If your problem worsens or new symptoms appear and you are unable to arrange prompt follow-up care, return to the Emergency Department. Specific signs to look out for: Worsening headache, worsening dizziness or any concerns or getting worse. Any other instructions: Take the Dilaudid as prescribed. See the narcotic instruction sheet. Take Reglan for nausea Follow-up with Dr. Elias: Call the office tomorrow. Bring a copy of the labs and MRI reports with you when you see Dr. Elias. Prescriptions: Hydromorphone HCl [Dilaudid 2 mg Tablet] 2 mg PO Q4HP PRN #30 tablet PRN Reason: Metoclopramide HCl [Reglan 10 mg Tablet] 1 - 2 tab PO ASDIR PRN #25 tablet PRN Reason: Forms: Parent Work Note Referrals: MELISA PEARSON MD [Primary Care Provider] - Follow up in 3-5 days
--- NOTE | 2017-12-31 21:58 | RADIOLOGY REPORT (SQ) ---
EXAM DESCRIPTION: CT HEAD WITHOUT COMPLETED DATE/TIME: 12/31/2017 8:49 pm REASON FOR STUDY: headache and dizzyness COMPARISON: 10/26/2016 TECHNIQUE: Axial images acquired through the brain without intravenous contrast. Images reviewed wi th bone, brain and subdural windows. Images stored on PACS. All CT scanners at this facility use dose modulation, iterative reconstruction, and/or weight based d osing when appropriate to reduce radiation dose to as low as reasonably achievable (ALARA). [facility]: Dose Right [facility]: CareDose [facility]: Dose Right [facility]: Teradose 4D [facility]: Smart Acquia RADIATION DOSE: CT Rad equipment meets quality standard of care and radiation dose reduction techniq ues were employed. CTDIvol: 53.2 mGy. DLP: 991 mGy-cm. mGy. LIMITATIONS: None. FINDINGS: VENTRICLES: Normal size and contour. CEREBRUM: No masses. No hemorrhage. No midline shift. No evidence for acute infarction. Normal gra y/white matter differentiation. No areas of low density in the white matter. CEREBELLUM: No masses. No hemorrhage. No alteration of density. No evidence for acute infarction. EXTRAAXIAL SPACES: No fluid collections. No masses. ORBITS AND GLOBE: No intra- or extraconal masses. Normal contour of globe without masses. CALVARIUM: No fracture. PARANASAL SINUSES: No fluid or mucosal thickening. SOFT TISSUES: No mass or hematoma. OTHER: No other significant finding. IMPRESSION: No acute intracranial findings. EVIDENCE OF ACUTE STROKE: No COMMENT: Quality ID # [id number]: Final reports with documentation of one or more dose reduction techniques (e.g., Automated exposure control, adjustment of the mA and/or kV according to patient size, use of iterative reconstruction technique) TECHNICAL DOCUMENTATION: JOB ID: [id number] [place]-72 2010 [employer]- All Rights Reserved Reading location - IP/workstation name: [email or web address]
--- NOTE | 2017-12-31 22:53 | RADIOLOGY REPORT (SQ) ---
EXAM DESCRIPTION: MRA HEAD WITHOUT COMPLETED DATE/TIME: 12/31/2017 10:19 pm REASON FOR STUDY: leigh, vertigo COMPARISON: None. TECHNIQUE: Axial 3-D [id number] acquisition imaging performed through the brain in the area of t he [place]. Images reformatted using 3-D MIPS. LIMITATIONS: None. FINDINGS: SOURCE IMAGES: No unexpected findings on source images. No large masses. 3-D MIP: No aneurysm. No occlusions. No significant stenosis. OTHER: No other significant finding. IMPRESSION: No aneurysm. No occlusions. TECHNICAL DOCUMENTATION: JOB ID: [id number] [place]-72 2010 [id number]- All Rights Reserved Reading location - IP/workstation name: [email or web address]
--- NOTE | 2017-12-31 22:56 | RADIOLOGY REPORT (SQ) ---
EXAM DESCRIPTION: MRI HEAD WITHOUT COMPLETED DATE/TIME: 12/31/2017 10:25 pm REASON FOR STUDY: MARR, vertigo COMPARISON: None. TECHNIQUE: Multiplanar imaging includes non-contrasted T1, T2, FLAIR, and diffusion with ADC map seq uences. Images stored on PACS. LIMITATIONS: None. FINDINGS: ANATOMY: No anomalies. Normal vascular flow voids. Pituitary fossa normal. CSF SPACES: Normal in size and contour. No hemorrhage. CEREBRUM: Sulci and gyri normal in size and contour. Age-appropriate white matter signal on FLAIR im aging. No evidence of hemorrhage, mass, or extraaxial fluid collection. POSTERIOR FOSSA: No signal alteration. No hemorrhage. No edema, masses or mass effect. Internal berry tory canals, cerebello-pontine angles, mastoids normal. DIFFUSION IMAGING: Negative for acute or sub-acute infarction. ORBITS: No masses. Globes normal. PARANASAL SINUSES: No fluid levels. Mucosa normal. OTHER: No other significant finding. IMPRESSION: Age-appropriate exam. EVIDENCE OF ACUTE STROKE: NO. TECHNICAL DOCUMENTATION: JOB ID: [id number] [place]-72 2010 [employer]- All Rights Reserved Reading location - IP/workstation name: [email or web address]
[2017-12-31 23:03] LABS: ABSOLUTE BASOPHILS # (AUTO) 0.1 10^3/uL (0.0-0.2); ABSOLUTE EOSINOPHILS # (AUTO) 0.3 10^3/uL (0.0-0.6); ABSOLUTE LYMPHOCYTES (AUTO) 2.6 10^3/uL (0.5-4.7); ABSOLUTE MONOCYTES (AUTO) 0.5 10^3/uL (0.1-1.4); ABSOLUTE NEUT (AUTO) 4.2 10^3/uL (1.7-8.2); BASOPHILS % (AUTO) 0.8 % (0-2); EOSINOPHILS % (AUTO) 4.4 % (0-6); HEMATOCRIT 42.2 % (36.0-47.0); HEMOGLOBIN 13.9 g/dL (12.0-15.5); LYMPHOCYTES % (AUTO) 33.9 % (13-45); MEAN CORPUSCULAR HEMOGLOBIN 28.4 pg (27.0-33.4); MEAN CORPUSCULAR VOLUME 86 fl (80-97); MONOCYTES % (AUTO) 6.1 % (3-13); PLATELET COUNT 216 10^3/uL (150-450); RED BLOOD COUNT 4.89 10^6/uL (3.72-5.28); RED CELL DISTRIBUTION WIDTH 14.4 % (11.5-14.0); SEGMENTED NEUTROPHILS % (AUTO) 54.8 % (42-78); TOTAL CELLS COUNTED % (AUTO) 100 %; WHITE BLOOD COUNT 7.7 10^3/uL (4.0-10.5)
[2017-12-31 23:13] LABS: ALANINE AMINOTRANSFERASE 109 U/L (9-52); ALBUMIN 4.5 g/dL (3.5-5.0); ALKALINE PHOSPHATASE 99 U/L (38-126); ANION GAP 8 (5-19); ASPARTATE AMINO TRANSFERASE 87 U/L (14-36); BILIRUBIN,DIRECT 0.2 mg/dL (0.0-0.4); BILIRUBIN,TOTAL 0.4 mg/dL (0.2-1.3); BLOOD UREA NITROGEN 10 mg/dL (7-20); CALCIUM 10.2 mg/dL (8.4-10.2); CARBON DIOXIDE 29 mmol/L (22-30); CHLORIDE 105 mmol/L (98-107); GLUCOSE 102 mg/dL (75-110); POTASSIUM 4.5 mmol/L (3.6-5.0); SODIUM 141.7 mmol/L (137-145); TOTAL PROTEIN 7.4 g/dL (6.3-8.2)
[2017-12-31 23:47] LABS: ERYTHROCYTE SEDIMENTATION RATE 17 mm/hr (0-20)
[2017-12-31] MEDS ORDERED: HYDROMORPHONE HCL 2 MG TABLET PO ONE (23:51)
[2018-01-01 00:05] VITALS: BP 111/63
== END 2018-01-01 00:06 | disposition home or self-care (01) ==
LOC: ER 19:37
DX: G43.909 Migraine, unspecified, not intractable, without status migrainosus (principal); R42 Dizziness and giddiness; R11.0 Nausea; Z86.718 Personal history of other venous thrombosis and embolism; Z88.6 Allergy status to analgesic agent; Z88.5 Allergy status to narcotic agent; Z86.711 Personal history of pulmonary embolism
CPT/HCPCS: 99284; 96361; 96374; 96375; 36415; 84702; 85025; 85652; 80053; 70551; 70544; 70450; J1200; J3490; J2765; J7040

== ENCOUNTER 2018-07-17 21:26 | Emergency (ER) | payer MEDICAID, OTHER ==
[2018-07-17] MEDS ORDERED: ACETAMINOPHEN 325 MG TABLET PO ONE (22:16)
--- NOTE | 2018-07-17 22:23 | RADIOLOGY REPORT (SQ) ---
Right foot three views HISTORY: Right foot pain, trauma. FINDINGS: Bony alignment is anatomic. No fracture or dislocation. Soft tissues are unremarkable. IMPRESSION: No fracture.
[2018-07-17] MEDS ORDERED: HYDROCODONE/ACETAMINOPHEN 5-325 MG (6 TAB/ER DISP) PO PRN (22:47)
[2018-07-17] MEDS ORDERED: OXYCODONE-ACETAMINOPHEN 5-325 MG TABLET PO ONE (22:47)
--- NOTE | 2018-07-17 22:53 | ER Document Report ---
ED Extremity Problem, Lower - General Chief Complaint: Foot Injury Stated Complaint: FOOT INJURY Time Seen by Provider: 07/17/18 22:40 Mode of Arrival: Wheelchair Information source: Patient TRAVEL OUTSIDE OF THE [place] IN LAST 30 DAYS: No - HPI Patient complains to provider of: Injury, Pain, Swelling Location: Foot Occurred: Just prior to arrival Where: Outdoors Onset/Duration: Sudden Quality of pain: Achy, Fullness, Pressure, Throbbing Severity: Moderate Pain Level: 4 Context: Crush Recent injury: Yes Associated symptoms: Painful ambulation Exacerbated by: Movement Relieved by: Nothing Notes: Patient is a 33-year-old female presenting to the emergency room today complaining of injury to her right foot, patient was volunteering at a [employer] when she was accidentally run over by the trailer that the tractor was pulling full of spectator's, she reports inability to ambulate on it, with the significant pain on range of motion, denies injury or pain elsewhere - Related Data Allergies/Adverse Reactions: dichloralphenazone [From MIDRIN] Allergy (Mild, Verified 07/02/17 15:08) Hives isometheptene mucate [From MIDRIN] Allergy (Mild, Verified 07/02/17 15:08) Hives meperidine HCl [From Demerol] Allergy (Mild, Verified 07/02/17 15:08) Hives morphine [Morphine] Allergy (Mild, Verified 07/02/17 15:08) Hives codeine [Codeine] Adverse Reaction (Severe, Verified 07/02/17 15:08) VOMITING Past Medical History - General Information source: Patient - Social History Smoking Status: Never Smoker Chew tobacco use (# tins/day): No Frequency of alcohol use: None Drug Abuse: None Family History: Arthritis, CAD, COPD, CVA, DM, Hyperlipidemia, Hypertension, Malignancy, Thyroid Disfunction Patient has suicidal ideation: No Patient has homicidal ideation: No - Past Medical History Cardiac Medical History: 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 Denies: Hx Cerebrovascular Accident, Hx Seizures Renal/ Medical History: Reports: Hx Kidney Stones. Denies: Hx Peritoneal Dialysis GI Medical History: Reports: Hx Gastroesophageal Reflux Disease Musculoskeletal Medical History: Reports Hx Arthritis - hands, left knee , Reports Hx Musculoskeletal Deformity, Reports Hx Musculoskeletal Trauma Past Surgical History: Reports: Hx Adenoidectomy, Hx Cholecystectomy, Hx Hysterectomy, Hx Orthopedic Surgery - L knee, Hx Tonsillectomy, Hx Tubal Ligation - Immunizations Immunizations up to date: Yes Hx Diphtheria, Pertussis, Tetanus Vaccination: Yes Hx Pneumococcal Vaccination: 06/28/12 Review of Systems - Review of Systems Constitutional: No symptoms reported EENT: No symptoms reported Cardiovascular: No symptoms reported Respiratory: No symptoms reported Gastrointestinal: No symptoms reported Genitourinary: No symptoms reported Female Genitourinary: No symptoms reported Musculoskeletal: See HPI Skin: No symptoms reported Hematologic/Lymphatic: No symptoms reported Neurological/Psychological: No symptoms reported -: Yes All other systems reviewed and negative Physical Exam - Vital signs Vitals: Temp Pulse Resp BP Pulse Ox 98.0 F 87 16 117/64 98 07/17/18 21:39 07/17/18 21:39 07/17/18 21:39 07/17/18 21:39 07/17/18 21:39 - Notes Notes: - General General appearance: Appears well, Alert In distress: None - HEENT Head: Normocephalic, Atraumatic Eyes: Normal Conjunctiva: Normal Extraocular movements intact: Yes Eyelashes: Normal Pupils: PERRL - Respiratory Respiratory status: No respiratory distress - Cardiovascular Rhythm: Regular - Abdominal Inspection: Normal - Back Back: Normal - Extremities General upper extremity: Normal inspection General lower extremity: Dorsal surface of the right foot with ecchymosis, mild swelling, tender to palpate, 2+ DP pulses, distal sensation and motor is intact with brisk capillary refill - Neurological Neuro grossly intact: Yes Orientation: AAOx4 Rhonda Coma Scale Eye Opening: Spontaneous Rhonda Coma Scale Verbal: Oriented [place] Coma Scale Motor: Obeys Commands Rhonda Coma Scale Total: 15 - Psychological Associated symptoms: Normal affect, Normal mood - Skin Skin Temperature: Warm Skin Moisture: Dry Skin Color: Normal Course - Re-evaluation Re-evalutation: 07/18/18 01:17 Imaging findings discussed with patient which are unremarkable, symptoms consistent with crush injury to her right foot, she was placed in a splint and provided with crutches, advised to ice and elevate, follow-up with orthopedics or return if symptoms worsen, patient acknowledges understanding and agreement with this plan - Vital Signs Vital signs: Temp Pulse Resp BP Pulse Ox 98.5 F 78 15 121/60 100 07/17/18 23:05 07/17/18 23:05 07/17/18 23:05 07/17/18 23:05 07/17/18 23:05 - Diagnostic Test Radiology reviewed: Image reviewed, Reports reviewed Procedures - Immobilization Right Foot Time completed: 22:52 Pre-Proc Neuro Vasc Exam: Normal Immobilizer type: Posterior ankle Post-Proc Neuro Vasc Exam: Normal Alignment checked and good: Yes Discharge - Discharge Clinical Impression: Foot contusion Qualifiers: Encounter type: initial encounter Laterality: right Qualified Code(s): S90.31XA - Contusion of right foot, initial encounter Condition: Stable Disposition: HOME, SELF-CARE Instructions: Contusion ([facility]) Additional Instructions: Follow up with your primary care provider and an orthopedic surgeon in one to 2 days. Return to the emergency room immediately if symptoms worsen or any additional concerns. Ice and elevate the affected extremity. Limit weightbearing. Prescriptions: Hydrocodone/Acetaminophen [Hydrocodon-Acetaminophen 5-325] 1 each PO Q6 #10 tablet Forms: Return to Work Referrals: RONI PARR MD [ACTIVE STAFF] - Follow up as needed
[2018-07-17 23:06] VITALS: BP 121/60
== END 2018-07-17 23:05 | disposition home or self-care (01) ==
LOC: ER 21:26
DX: S90.31XA Contusion of right foot, initial encounter (principal); V09.9XXA Pedestrian injured in unspecified transport accident, initial encounter; Y92.89 Other specified places as the place of occurrence of the external cause; Y99.2 Volunteer activity; Z88.6 Allergy status to analgesic agent; Z86.711 Personal history of pulmonary embolism; Z79.01 Long term (current) use of anticoagulants; Z87.442 Personal history of urinary calculi; Z90.49 Acquired absence of other specified parts of digestive tract; Z90.710 Acquired absence of both cervix and uterus
CPT/HCPCS: 99284; 73630; 29125; J3490

== ENCOUNTER 2018-08-24 23:49 | Emergency (ER) | payer MEDICAID ==
--- NOTE | 2018-08-25 01:20 | ER Document Report ---
ED Flu Like - General Chief Complaint: Flu Symptoms Stated Complaint: SORE THROAT,COUGH Time Seen by Provider: 08/25/18 01:00 Mode of Arrival: Ambulatory Information source: Patient Notes: 33-year-old female presented to ED for complaint of cough cold congestion sore throat fever and chest discomfort for 2 weeks. She states she was seen at their primary care today and they told her she needed to take some Sudafed. She states they did not look in her nose did not look in her throat and look in the ears and did not listen and her chest. Patient states her daughter was just diagnosed with pneumonia and she thinks that is what she has. States she has been having fevers with sweats daily. She is alert and oriented respirations regular and unlabored speaking in full sentences walks with a even steady gait. TRAVEL OUTSIDE OF THE [place] IN LAST 30 DAYS: No - HPI Onset: Other - States she has had a cough cold congestion sore throat for about 2 weeks. She states she is having for fevers worse at night. Quality of pain: Achy, Pressure Severity: Moderate Pain Level: 4 Associated symptoms: Body/muscle aches, Chest pain, Productive cough, Fever, Nausea, Sinus pain/drainage, Sore throat Similar symptoms previously: Yes Recently seen / treated by doctor: Yes - Related Data Allergies/Adverse Reactions: dichloralphenazone [From MIDRIN] Allergy (Mild, Verified 07/02/17 15:08) Hives isometheptene mucate [From MIDRIN] Allergy (Mild, Verified 07/02/17 15:08) Hives meperidine HCl [From Demerol] Allergy (Mild, Verified 07/02/17 15:08) Hives morphine [Morphine] Allergy (Mild, Verified 07/02/17 15:08) Hives codeine [Codeine] Adverse Reaction (Severe, Verified 07/02/17 15:08) VOMITING Past Medical History - General Information source: Patient - Social History Smoking Status: Never Smoker Frequency of alcohol use: None Drug Abuse: None Lives with: Family Family History: Arthritis, CAD, COPD, CVA, DM, Hyperlipidemia, Hypertension, Malignancy, Thyroid Disfunction Patient has suicidal ideation: No Patient has homicidal ideation: No - Past Medical History Cardiac Medical History: 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 Pulmonary Medical History: Reports: None EENT Medical History: Reports: None Neurological Medical History: Reports: Hx Migraine Endocrine Medical History: Reports: None Renal/ Medical History: Reports: Hx Kidney Stones Malignancy Medical History: Reports: None GI Medical History: Reports: Hx Gastroesophageal Reflux Disease Musculoskeletal Medical History: Reports Hx Arthritis - hands, left knee , Reports Hx Musculoskeletal Deformity, Reports Hx Musculoskeletal Trauma Skin Medical History: Reports None Psychiatric Medical History: Reports: None Traumatic Medical History: Reports: None Past Surgical History: Reports: Hx Adenoidectomy, Hx Cholecystectomy, Hx Hysterectomy, Hx Orthopedic Surgery - L knee, Hx Tonsillectomy, Hx Tubal Ligation - Immunizations Immunizations up to date: Yes Hx Diphtheria, Pertussis, Tetanus Vaccination: Yes Hx Pneumococcal Vaccination: 06/28/12 Review of Systems - Review of Systems Notes: REVIEW OF SYSTEMS: CONSTITUTIONAL : Fevers chills sweats sore throat for 2 weeks EENT: Nasal drainage postnasal drip sore throat congestion for 2 weeks denies throat, tongue, or mouth swelling or difficulty swallowing. CARDIOVASCULAR: Denies chest pain. Denies palpitations or racing or irregular heart beat. Denies ankle edema. RESPIRATORY: Cough cold congestion with chest pressure for 2 weeks. Denies shortness of breath, difficulty breathing, or wheezing. GASTROINTESTINAL: Sometimes she has so much congestion that she has vomited the last couple days. Denies abdominal pain or distention. Denies diarrhea. Denies blood in vomitus, stools, or per rectum. Denies black, tarry stools. Denies constipation. GENITOURINARY: Denies difficulty urinating, painful urination, burning, frequency, blood in urine, or discharge. FEMALE GENITOURINARY: Denies vaginal bleeding, heavy or abnormal periods, irregular periods. Denies vaginal discharge or odor. MUSCULOSKELETAL: Denies back or neck pain or stiffness. Denies joint pain or swelling. SKIN: Denies rash, lesions or sores. HEMATOLOGIC : Denies easy bruising or bleeding. LYMPHATIC: Denies swollen, enlarged glands. NEUROLOGICAL: Denies confusion or altered mental status. Denies passing out or loss of consciousness. Denies dizziness or lightheadedness. Denies headache. Denies weakness or paralysis or loss of use of either side. Denies problems with gait or speech. Denies sensory loss, numbness, or tingling. Denies seizures. PHYSICAL EXAMINATION: GENERAL: Well-appearing, well-nourished and in no acute distress. HEAD: Atraumatic, normocephalic. EYES: Pupils equal round and reactive to light, extraocular movements intact, conjunctiva are normal. ENT: Purulent nasal drainage with postnasal drip, oropharynx clear without exudates. Moist mucous membranes. NECK: Normal range of motion, supple without lymphadenopathy LUNGS: Breath sounds clear to auscultation bilaterally and equal. No wheezes rales or rhonchi. HEART: Regular rate and rhythm without murmurs ABDOMEN: Soft, nontender, nondistended abdomen. No guarding, no rebound. No masses appreciated. Female : deferred Musculoskeletal: Normal range of motion, no pitting or edema. No cyanosis. NEUROLOGICAL: Cranial nerves grossly intact. Normal speech, normal gait. Normal sensory, motor exams PSYCH: Normal mood, normal affect. SKIN: Warm, Dry, normal turgor, no rashes or lesions noted. PSYCHIATRIC: Denies anxiety or stress. Denies depression, suicidal ideation, or homicidal ideation. ALL OTHER SYSTEMS REVIEWED AND NEGATIVE. Dictation was performed using [employer] voice recognition software Physical Exam - Vital signs Vitals: Temp Pulse Resp BP Pulse Ox 97.9 F 98 18 121/72 98 08/24/18 23:53 08/24/18 23:53 08/24/18 23:53 08/24/18 23:53 08/24/18 23:53 Course - Re-evaluation Re-evalutation: 08/25/18 03:35 Just labs and x-rays with patient. Written report of labs and x-rays given to patient. Patient discharged home with a [place] dispense pack for her cough that is not being relieved with any of the [id number] medications that she has tried. Patient states she has had the symptoms for about 2 weeks. After performing a Medical Screening Examination, I estimate there is LOW risk for ACUTE CORONARY SYNDROME, RESPIRATORY FAILURE, SEPSIS OR MENINGITIS, thus I consider the discharge disposition reasonable. I have reevaluated this patient multiple times and no significant life threatening changes are noted. The patient and I have discussed the diagnosis and risks, and we agree with discharging home with close follow-up. We also discussed returning to the Emergency Department immediately if new or worsening symptoms occur. We have discussed the symptoms which are most concerning (e.g., changing or worsening pain, trouble swallowing or breathing, neck stiffness, fever) that necessitate immediate return. - Vital Signs Vital signs: Temp Pulse Resp BP Pulse Ox 97.9 F 98 18 121/72 98 08/24/18 23:53 08/24/18 23:53 08/24/18 23:53 08/24/18 23:53 08/24/18 23:53 - Diagnostic Test Radiology reviewed: Image reviewed, Reports reviewed Discharge - Discharge Clinical Impression: URI (upper respiratory infection) Qualifiers: URI type: unspecified URI Qualified Code(s): J06.9 - Acute upper respiratory infection, unspecified Condition: Stable Disposition: HOME, SELF-CARE Additional Instructions: UPPER RESPIRATORY ILLNESS: You have a viral infection of the respiratory passages -- a "cold." This common infection causes nasal congestion, drainage, and often sore throat and cough. It is highly contagious. The disease usually lasts about 10 to 14 days. There is no "cure" for the viral infection -- it must run its course. If there is a complication, such as bacterial infection in the nose, sinuses, middle ear, or bronchial tubes, antibiotics may be required. The antibiotics won't affect the virus. Drink plenty of fluids. A humidifier may help. An expectorant medication or decongestant may make you more comfortable. Use acetaminophen or ibuprofen for fever or aches. See the doctor if fever persists over two days, if there is any significant worsening of your symptoms, or if you simply fail to improve as expected. DECONGESTANT MEDICATION: A decongestant medicine has been prescribed. Often this medicine is combined in the same tablet with an antihistamine or expectorant. This type of medicine is helpful in treating a bad cold or sinus condition, as well as in treatment of the nasal congestion of hay fever. It is not of much benefit for lung infections. Decongestant medicines are related to stimulants. They can cause an increase in blood pressure and heart rate. Persons with heart disease and high blood pressure should not take decongestants without discussing this with the physician. If you develop palpitations, chest pain, headache, or tremors, stop the medicine and consult your physician. COUGH-SUPPRESSANT & EXPECTORANT MEDICATION: You are to use a cough medication as needed for relief of symptoms. This medicine is a combination of an expectorant (to make the mucous thinner and more easily "coughed up") and a cough suppressant (to reduce the frequency of coughing). The cough-suppressant medicine is related to narcotics. You may experience mild nausea and sleepiness. Some patients who are very sensitive to narcotics may have stomach pain from this medicine. Taking the medicine with food reduces these side effects. Do not drive or work with machinery until you know how this medicine affects you. The expectorant should have no side effects. Iodine-containing expectorants (such as organidin) should not be taken by persons with active thyroid disease unless approved by your doctor. Call the doctor if you develop shortness of breath, hives, rash, itching, lightheadedness, or severe nausea and vomiting. USE OF ACETAMINOPHEN (Tylenol): Acetaminophen may be taken for pain relief or fever control. It's much safer than aspirin, offering a wider range of "safe" dosages. It is safe during . Some brand names are Tylenol, Panadol, Datril, Anacin 3, Tempra, and Liquiprin. Acetaminophen can be repeated every four hours. The following are maximum recommended dosages: >89 pounds or adults 650 mg to 900 mg Acetaminophen can be repeated every four hours. Maximum dose not to exceed 4000 mg a day. Try Sudafed 30 mg, Claritin 10 mg, Mucinex 600 mg, ibuprofen or Tylenol for the discomfort. He should also try Flonase nasal spray according to the box instructions. Salt and soda solution gargles for the sore throat as well as Chloraseptic spray for the sore throat. Increase your p.o. intake of water to 8 8 ounce glasses a day. Salt and soda solution 1 quart of water 1 tablespoon of salt 1 teaspoon of baking soda Mixed 3 ingredients together and boil for 1 minute Placed in a covered quart jar Use 1/2 ounce of cold solution to gargle 3 times a day FOLLOW-UP CARE: If you have been referred to a physician for follow-up care, call the physician s office for an appointment as you were instructed or within the next two days. If you experience worsening or a significant change in your symptoms, notify the physician immediately or return to the Emergency Department at any time for re-evaluation. Referrals: NURYS TELLO DO [Primary Care Provider] - Follow up in 3-5 days
--- NOTE | 2018-08-25 01:40 | RADIOLOGY REPORT (SQ) ---
EXAM DESCRIPTION: XR CHEST 2 VIEWS COMPLETED DATE/TME: 08/25/2018 01:00 CLINICAL HISTORY: 33 years, Female, cough cold ongestion COMPARISON: 07/08/2017 chest x-ray NUMBER OF VIEWS: 2 TECHNIQUE: Frontal and lateral views of the chest LIMITATIONS: None. FINDINGS: Heart size is normal. Lungs are clear. No pneumothorax. IMPRESSION: Negative chest copyright 2010 [employer]- All Rights Reserved
[2018-08-25 02:39] LABS: A TYPE INFLUENZA AG NEGATIVE (NEGATIVE); B INFLUENZA AG NEGATIVE (NEGATIVE)
[2018-08-25] MEDS ORDERED: HYDROCODONE/ACETAMINOPHEN 5-325 MG (6 TAB/ER DISP) PO PRN (03:30)
[2018-08-25 04:25] VITALS: BP 115/79
== END 2018-08-25 04:25 | disposition home or self-care (01) ==
LOC: ER 23:49
DX: J06.9 Acute upper respiratory infection, unspecified (principal); Z88.6 Allergy status to analgesic agent; Z86.711 Personal history of pulmonary embolism; Z79.01 Long term (current) use of anticoagulants; Z87.442 Personal history of urinary calculi; Z90.49 Acquired absence of other specified parts of digestive tract; Z90.710 Acquired absence of both cervix and uterus
CPT/HCPCS: 71046; 87070; 87804; 87880; 99283

== ENCOUNTER → 2019-01-17 | Outpatient (CLI) | payer MEDICAID ==
--- NOTE | 2019-01-18 08:17 | RADIOLOGY REPORT (SQ) ---
EXAM DESCRIPTION: HAND RIGHT 3 VIEWS COMPLETED DATE/TIME: 01/17/2019 5:15 pm REASON FOR STUDY: UNSP INJURY OF RIGHT WRIST, HAND AND FINGER(S), INIT ENCNTR S69.91XA UNSP INJURY OF RIGHT WRIST, HAND AND FINGER(S), INI COMPARISON: 06/02/2017 EXAM PARAMETERS: NUMBER OF VIEWS: Three views. TECHNIQUE: AP, lateral and oblique radiographic images acquired of the right hand. LIMITATIONS: None. FINDINGS: MINERALIZATION: Normal. BONES: No acute fracture or dislocation. No worrisome bone lesions. JOINTS: No effusions. SOFT TISSUES: No soft tissue swelling. No foreign body. OTHER: No other significant finding. IMPRESSION: NEGATIVE STUDY OF THE RIGHT HAND. NO RADIOGRAPHIC EVIDENCE OF ACUTE INJURY. TECHNICAL DOCUMENTATION: JOB ID: [id number] [employer] All Rights Reserved Reading location - IP/workstation name: [email or web address]
== END ==
LOC: OD 16:21
PROVIDERS: ATTEND Nurse Practitioner Family
DX: S69.91XA Unspecified injury of right wrist, hand and finger(s), initial encounter (principal); X58.XXXA Exposure to other specified factors, initial encounter; Y93.9 Activity, unspecified; Y92.9 Unspecified place or not applicable

== ENCOUNTER 2019-07-04 13:07 | Emergency (ER) | payer MEDICAID ==
[2019-07-04] MEDS ORDERED: KETOROLAC TROMETHAMINE 60 MG/2 ML SDV IM ONE (15:12)
--- NOTE | 2019-07-04 15:18 | ER Document Report ---
ED Medical Screen (RME) - General Chief Complaint: Fall Stated Complaint: FALL/KNEE PAIN Time Seen by Provider: 07/04/19 15:12 Primary Care Provider: [facility] [Provider Group] - Follow up as needed JANENE DOWNING FNP- [NO LOCAL MD] - Follow up as needed Mode of Arrival: Wheelchair Information source: Patient Notes: 34-year-old female presented to ED for pain in her right hip the knee. She states that her dog pulled her down the stairs on June 29 and she had pain since then. She states she has been taken Tylenol and not getting any relief. She has not followed up with her doctor. She states it is not getting better. She is alert oriented respirations regular nonlabored speaking in full sentences walks with limp. I have greeted and performed a rapid initial assessment of this patient. A comprehensive ED assessment and evaluation of the patient, analysis of test results and completion of medical decision making process will be conducted by an additional ED providers. TRAVEL OUTSIDE OF THE [place] IN LAST 30 DAYS: No - HPI Onset: Other - June 29 Onset/Duration: Persistent Quality of pain: Achy, Throbbing Severity: Moderate Pain Level: 4 Exacerbated by: Movement, Walking Relieved by: Denies Similar symptoms previously: Yes Recently seen / treated by doctor: No - Related Data Allergies/Adverse Reactions: dichloralphenazone [From MIDRIN] Allergy (Mild, Verified 07/04/19 15:07) Hives isometheptene mucate [From MIDRIN] Allergy (Mild, Verified 07/04/19 15:07) Hives meperidine HCl [From Demerol] Allergy (Mild, Verified 07/04/19 15:07) Hives morphine [Morphine] Allergy (Mild, Verified 07/04/19 15:07) Hives codeine [Codeine] Adverse Reaction (Severe, Verified 07/04/19 15:07) VOMITING Past Medical History - General Information source: Patient - Social History Cigarette use (# per day): No Frequency of alcohol use: None Drug Abuse: None Occupation: Moving [employer] Lives with: Spouse/Significant other Family history: Reviewed & Not Pertinent - Past Medical History Cardiac Medical History: 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 Pulmonary Medical History: Reports: None EENT Medical History: Reports: None Neurological Medical History: Reports: Hx Migraine Endocrine Medical History: Reports: None Renal/ Medical History: Reports: Hx Kidney Stones Malignancy Medical History: Reports: None GI Medical History: Reports: Hx Gastroesophageal Reflux Disease Musculoskeltal Medical History: Reports Hx Arthritis - hands, left knee , Reports Hx Musculoskeletal Deformity, Reports Hx Musculoskeletal Trauma Skin Medical History: Reports None Psychiatric Medical History: Reports: None Traumatic Medical History: Reports: None Infectious Medical History: Reports: None Past Surgical History: Reports: Hx Adenoidectomy, Hx Cholecystectomy, Hx Hysterectomy, Hx Orthopedic Surgery - L knee, Hx Tonsillectomy, Hx Tubal Ligation - Immunizations Immunizations up to date: Yes Hx Diphtheria, Pertussis, Tetanus Vaccination: Yes Review of Systems - Review of Systems Constitutional: No symptoms reported EENT: No symptoms reported Cardiovascular: No symptoms reported Respiratory: No symptoms reported Gastrointestinal: No symptoms reported Genitourinary: No symptoms reported Female Genitourinary: No symptoms reported Musculoskeletal: Joint pain - Right knee radiates up to her right hip Skin: No symptoms reported Hematologic/Lymphatic: No symptoms reported Neurological/Psychological: No symptoms reported Physical Exam - Vital signs Vitals: Temp Pulse Resp BP Pulse Ox 99.1 F 79 16 115/74 97 07/04/19 13:49 07/04/19 13:49 07/04/19 13:49 07/04/19 13:49 07/04/19 13:49 Interpretation: Normal - General General appearance: Appears well, Alert - HEENT Head: Normocephalic, Atraumatic Eyes: Normal Pupils: PERRL - Respiratory Respiratory status: No respiratory distress Chest status: Nontender Breath sounds: Normal Chest palpation: Normal - Cardiovascular Rhythm: Regular Heart sounds: Normal auscultation Murmur: No - Abdominal Inspection: Normal Distension: No distension Bowel sounds: Normal Tenderness: Nontender Organomegaly: No organomegaly - Back Back: Normal, Nontender - Extremities General upper extremity: Normal inspection, Nontender, Normal color, Normal ROM, Normal temperature General lower extremity: Normal color, Normal ROM, Normal temperature. No: Nii's sign Hip: Tender. No: Unable to bear weight - Painful Thigh: Tender. No: Unable to bear weight - Painful Knee: Tender, Pain with ROM, Tender joint line. No: Dislocation, Drawer's test instability, Ecchymosis, Instability, Joint effusion, Laceration, Laxity with valgus stress, Laxity with varus stress, Popliteal fossa tender, Unable to bear weight - Painful - Neurological Neuro grossly intact: Yes Cognition: Normal Orientation: AAOx4 [place]onda Coma Scale Eye Opening: Spontaneous [place] Coma Scale Verbal: Oriented [place] Coma Scale Motor: Obeys Commands [place] Coma Scale Total: 15 Speech: Normal Motor strength normal: LUE, RUE, LLE, RLE Sensory: Normal - Psychological Associated symptoms: Normal affect, Normal mood - Skin Skin Temperature: Warm Skin Moisture: Dry Skin Color: Normal Course - Re-evaluation Re-evalutation: 07/05/19 03:42 X-rays discussed with patient before discharge. There were no acute injuries noted on the x-ray but she was complaining of a lot of pain in the knee. She was treated with a knee immobilizer and crutches. Patient was instructed to follow-up with orthopedics due to the amount of pain in her knee. Patient was discharged home. - Vital Signs Vital signs: Temp Pulse Resp BP Pulse Ox 98.7 F 71 14 103/55 L 97 07/04/19 16:44 07/04/19 16:44 07/04/19 16:44 07/04/19 16:44 07/04/19 16:44 - Diagnostic Test Radiology reviewed: Image reviewed, Reports reviewed Procedures - Immobilization Right Knee Immobilizer type: Crutches, Knee immobilizer Performed by: PCT Alignment checked and good: Yes Doctor's Discharge - Discharge Clinical Impression: Right knee injury Qualifiers: Encounter type: initial encounter Qualified Code(s): S89.91XA - Unspecified injury of right lower leg, initial encounter Condition: Stable Disposition: HOME, SELF-CARE Additional Instructions: SUSPECTED INTERNAL KNEE INJURY: The examiner of your injured knee suspects an internal injury to the cartilage or internal ligaments. This must be further investigated by an certified technician specialist. The knee should be protected, ice packed, and elevated while awaiting your follow-up exam by the orthopedist. If there is severe swelling, severe pain, or any new symptoms while awaiting your exam, you should call the orthopedist. (If he/she is unavailable, call us or return for re-examination.) KNEE IMMOBILIZING SPLINT: The knee immobilizing splint will protect the injury while healing begins. This type of splint does not allow the knee to bend at all. No running or sports will be possible. If the splint allows painfree walking, it's giving adequate protection. If there is still significant pain, crutches may be needed as well. Don't do anything that hurts. Adjusted the splint, if necessary. The stiffeners on the sides are attached with Velcro, so they can be easily moved to adjust for thigh and calf size. If you need help with these adjustments, come back. You will lose muscle strength in the thigh while using this splint. The doctor will advise you if it's safe to do isometric knee exercises while you use it. USE OF CRUTCHES: The doctor has recommended that you not bear weight at this time. You will need to use crutches. Adjust the crutches so the tops come to about two inches under the armpit while you are standing upright. Use your hands -- not your armpits -- to support your weight. To get into a chair, support yourself with one crutch on the injured side. Hold the chair with the other hand, then lower yourself while putting all your weight on the good leg. Going up stairs is `good leg up, step up, then bring up crutches and bad leg.' Down stairs is `bad leg and crutches down, then bring good leg down.' If you develop numbness or swelling in an arm or hand, you are using the crutches incorrectly. Return if you are having any problems with the crutches. ICE & ELEVATION: Apply ice packs frequently against the painful area. Many different schedules are recommended, such as "20 minutes on, 20 minutes off" or "one hour ice, two hours rest." If you need to work, you may need to go longer between ice treatments. You should plan to have the area ice packed AT LEAST one-fourth of the time. The ice should be applied over the wrap, tape, or splint, or over a layer of cloth -- not directly against the skin. Some ice bags have a built-in cloth and can be put directly on the skin. Your injured part should be elevated as much as possible over the next 48 hours. Try to keep the injury above the level of the heart. Avoid use of the injured area. Elevation and rest will decrease the swelling. USE OF [id number] IBUPROFEN: Ibuprofen (Advil, Nuprin, Medipren, Motrin IB) is a medication for fever and pain control. In addition, it has anti- inflammatory effects which may be beneficial, especially in the treatment of injuries. It's best to take ibuprofen with food. Persons with ulcer disease or allergy to aspirin should notify their physician of this before taking ibuprofen. Ibuprofen can be given every four to six hours, for a total of four doses daily. Age Pain or fever dose Antiinflammatory dose 6-8 yr 200 mg (1 tab) 200 mg (1 tab) 9-11 yr 200 mg (1 tab) 200-400 mg (1-2 tab) 11-14 yr 200-400 mg (1-2 tab) 400 mg (2 tab) 15-adult 400 mg (2 tab) 600 mg (3 tab) Toradol Injection You have been given an injection of ketorolac tromethamine (Toradol). This is an excellent, safe drug for pain control. It also has potent antiinflammatory action. You should have significant pain relief within about one hour. Toradol is not addicting and is non-sedating. It does not interfere with driving or work. Call or return if you develop itching, hives, shortness of breath, or rash. FOLLOW-UP CARE: If you have been referred to a physician for follow-up care, call the physicians office for an appointment as you were instructed or within the next two days. If you experience worsening or a significant change in your symptoms, notify the physician immediately or return to the Emergency Department at any time for re-evaluation. Prescriptions: Ibuprofen [Motrin 800 mg Tablet] 800 mg PO Q8H PRN #20 tab PRN Reason: Forms: Special Work Note, Parent Work Note, Return to Work Referrals: JANENE DOWNING FNP-BC [NO LOCAL MD] - Follow up as needed [facility] [Provider Group] - Follow up as needed
--- NOTE | 2019-07-04 15:55 | RADIOLOGY REPORT (SQ) ---
EXAM DESCRIPTION: HIP RIGHT AP/LATERAL COMPLETED DATE/TIME: 07/04/2019 3:43 pm REASON FOR STUDY: PAIN SINCE 06/29 FALL COMPARISON: None. NUMBER OF VIEWS: Two views. TECHNIQUE: AP pelvis and additional frog-leg view of the right hip. LIMITATIONS: None. FINDINGS: MINERALIZATION: Normal. RIGHT HIP: No fracture or dislocation. No worrisome bone lesions. LEFT HIP: No fracture or dislocation. No worrisome bone lesions. PUBIS AND ISCHIUM: No fracture. PELVIS: No fracture. SACRUM: No fracture or dislocation. No worrisome bone lesions. LOWER LUMBAR SPINE: No fracture or dislocation. No worrisome bone lesions. No significant disc disea se. SOFT TISSUES: No findings. OTHER: No other significant finding. IMPRESSION: NEGATIVE STUDY OF THE RIGHT HIP. NO RADIOGRAPHIC EVIDENCE OF ACUTE INJURY. TECHNICAL DOCUMENTATION: JOB ID: [id number] [employer]- All Rights Reserved Reading location - IP/workstation name: [email or web address]
--- NOTE | 2019-07-04 15:55 | RADIOLOGY REPORT (SQ) ---
EXAM DESCRIPTION: KNEE RIGHT 4 VIEWS COMPLETED DATE/TIME: 07/04/2019 3:43 pm REASON FOR STUDY: PAIN SINCE 06/29 FALL COMPARISON: None. NUMBER OF VIEWS: Four views. TECHNIQUE: AP, lateral, and both oblique radiographic images acquired of the right knee. LIMITATIONS: None. FINDINGS: MINERALIZATION: Normal. BONES: No acute fracture or dislocation. No worrisome bone lesions. JOINT: No effusion. SOFT TISSUES: No soft tissue swelling. No radio-opaque foreign body. OTHER: No other significant finding. IMPRESSION: NEGATIVE STUDY OF THE RIGHT KNEE. NO RADIOGRAPHIC EVIDENCE OF ACUTE INJURY. TECHNICAL DOCUMENTATION: JOB ID: [id number] [employer]- All Rights Reserved Reading location - IP/workstation name: [email or web address]
[2019-07-04 16:47] VITALS: BP 103/55
== END 2019-07-04 16:59 | disposition home or self-care (01) ==
LOC: ER 13:07
DX: S89.91XA Unspecified injury of right lower leg, initial encounter (principal); M25.551 Pain in right hip; M25.561 Pain in right knee; W10.9XXA Fall (on) (from) unspecified stairs and steps, initial encounter; Z86.711 Personal history of pulmonary embolism; Z79.01 Long term (current) use of anticoagulants
CPT/HCPCS: 73502; 73564; L1830; J1885; 96374; 99283

== ENCOUNTER → 2019-12-30 | Outpatient (CLI) | payer MEDICAID ==
--- NOTE | 2019-12-30 15:12 | RADIOLOGY REPORT (SQ) ---
EXAM DESCRIPTION: FOREARM LEFT COMPLETED DATE/TIME: 12/30/2019 2:50 pm REASON FOR STUDY: INJURY OF LEFT FOREARM S59.912A UNSPECIFIED INJURY OF LEFT FOREARM, INITIAL ENCOU NT COMPARISON: None. NUMBER OF VIEWS: Two views. TECHNIQUE: Two radiographic images acquired of the left forearm, including elbow and wrist in at [address] [facility] one projection. LIMITATIONS: None. FINDINGS: MINERALIZATION: Normal. BONES: No acute fracture. No worrisome bone lesions. SOFT TISSUES: No obvious swelling or foreign body. OTHER: No other significant finding. IMPRESSION: NEGATIVE STUDY OF THE LEFT FOREARM. NO RADIOGRAPHIC EVIDENCE OF ACUTE INJURY. TECHNICAL DOCUMENTATION: JOB ID: [id number] [employer]- All Rights Reserved Reading location - IP/workstation name: [email or web address]
== END ==
LOC: OD 14:38
PROVIDERS: ATTEND Internal Medicine
DX: S59.912A Unspecified injury of left forearm, initial encounter (principal); X58.XXXA Exposure to other specified factors, initial encounter